=== PATIENT | male | born 1990 | race African-American/Black ===

== ENCOUNTER 2018-11-08 22:03 | Emergency (ER) | payer MEDICAID ==
[~2018-11-08] VITALS: Ht 172.7 cm; Wt 86.4 kg
[2018-11-09] MEDS ORDERED: LIDOCAINE 1% 10 ML VIAL INJ ONE
[2018-11-09 01:28] VITALS: BP 114/90
== END 2018-11-09 01:30 | disposition home or self-care (01) ==
LOC: EMS 22:05
DX: S61.412A Laceration without foreign body of left hand, initial encounter (principal); F12.90 Cannabis use, unspecified, uncomplicated; W45.8XXA Other foreign body or object entering through skin, initial encounter; Y93.89 Activity, other specified; Y92.89 Other specified places as the place of occurrence of the external cause; Y99.8 Other external cause status
CPT/HCPCS: 12002; 99283; J3490

== ENCOUNTER 2018-11-21 22:38 | Emergency (ER) | payer MEDICAID ==
[~2018-11-21] VITALS: Ht 177.8 cm; Wt 86.4 kg
[2018-11-21 23:00] VITALS: BP 126/66
== END 2018-11-21 23:47 | disposition home or self-care (01) ==
LOC: EMS 22:38
DX: S61.412D Laceration without foreign body of left hand, subsequent encounter (principal); F12.90 Cannabis use, unspecified, uncomplicated; Z48.02 Encounter for removal of sutures; W45.8XXD Other foreign body or object entering through skin, subsequent encounter